=== PATIENT | female | born 1945 | race Caucasian/White ===

== ENCOUNTER 2021-01-08 12:25 | Emergency (ER) | payer MEDICARE, SELFPAY ==
[2021-01-08 13:30] VITALS: BP 185/82; PULSE 72; RESP 16; TEMP 36.7; O2SAT 96; BMI 39.9
--- NOTE | 2021-01-08 13:39 | ED.FEMALEGU ---
HPI - Female Genitourinary General Chief complaint: Urogenital-Female Stated complaint: vag abscess Time Seen by Provider: 01/08/21 13:38 Source: patient and family Mode of arrival: wheelchair Limitations: no limitations History of Present Illness HPI Narrative: 75 y/o female presenting with painful external vaginal lesion for unknown amount of time. She has a history of HSV2 diagnosed 4 years ago. When she was living with one of her daughters in [facility] she was started on Valtrex for possible flare. The daughter who brings her in today states she thinks she has been in pain since then with no resolution after antivirals. Daughter today is a MEDICAL OFFICE REP and states she has never seen a lesion like this before and it is dry, cracked and painful. It started to slightly bleed today. No dysuria, no constipation. No fevers. MD elicited complaint: genital swelling Pertinent past history: STI/STD Onset (ago): month(s) Location of symptoms: external genitalia and perineum Severity: severe Female Urogenital Radiation: Non-Radiating Quality of pain: sharp and aching Consistency: intermittent Vaginal discharge: none Vaginal bleeding: none Exacerbating factors: palpation Associated symptoms: denies other symptoms Treatment prior to arrival: none Sexual activity: No Patient : No Related Data Allergies Allergy/AdvReac Type Severity Reaction Status Date / Time aspirin [ASA] Allergy Unknown BLOODY NOSE Unverified 07/15/20 14:52 Review of Systems Review of Systems: Constitutional: No Fever, No Chills Gastrointestinal: No Nausea, No Vomiting, No Diarrhea, No abdominal Pain Genitourinary: No Dysuria, No Urinary Frequency, No Hematuria Musculoskeletal: No joint pain, No Myalgias Skin: + Skin Lesions, No rash Neuro: No Weakness, No Numbness, No Dizziness, No Headache Psych: No Anxiety/Panic, No Depression Heme/Lymph: No Bruising, No Lymphadenopathy PMFSH Past Medical History Attestation statement: The following information was validated with the patient. Medical History Congestive heart failure (CHF) Dementia Diabetes Hernia Herpes Shoulder fracture, left Social History Social History Smoked in Last 30 Days: No Use of substances other than those prescribed or required for medical reasons: No Advance Directives: No Advance Directives Information Provided: Yes Physical Exam Vital Signs: Vital Signs: Last Vital Signs Temp 98.1 F 01/08/21 13:30 Pulse 72 01/08/21 13:30 Resp 16 01/08/21 13:30 BP 185/82 H 01/08/21 13:30 Pulse Ox 96 01/08/21 13:30 Body Mass Index 39.9 Appearance: Alert. Oriented X2. No acute distress. Eyes: Pupils equal, round and reactive to light. ENT: Pharynx normal. Neck: Normal inspection. Neck supple. CVS: Normal heart rate and rhythm. Pulses normal. Respiratory: No respiratory distress. Breath sounds normal. Abdomen: Obese, Soft and nontender. +BS x4 : large 3cm friable mass at the base of the left vulva, tender Skin: Skin warm and dry. Normal skin color. Normal skin turgor. No rashes. Extremities: No lower extremity edema. Course Course Course Narrative: 75 y/o female presenting with painful external genitalia lesion for unknown amount of time. Lesion is highly concerning for a malignant lesion. The possibility of this was discussed with the patient's daughter. Dr. Jones has been contacted for evaluation of possible biopsy - he is happy to see the patient in the office and will contact them this week to arrange. Patient and daughter agree. Barrier cream provided to family for comfort. Stable for d/c. Critical Care Time Critical Care Time Critical Care Time: No Discharge Plan Discharge Clinical Impression: Vulval lesion Patient Disposition: Home, Self-Care Instructions: Vulva Biopsy (DC) Additional Instructions: It is important that you follow up with Gynecology for further workup of the painful lesion. You will likely need a biopsy to diagnose it. Recommend using barrier cream as a protective layer. Dr. Jones's office will call you to arrange an appointment. Referrals: Sergo Jones MD [Physician] - 2 days (vulvar/perirectal lesion) Discharge Date/Time: 01/08/21 14:27
== END 2021-01-08 14:27 | disposition home or self-care (01) ==
PROVIDERS: Emergency Provider Emergency Medicine; PCP Internal Medicine
DX: N76.4 Abscess of vulva (principal); E11.9 Type 2 diabetes mellitus without complications; I50.9 Heart failure, unspecified; F03.90 Unspecified dementia, unspecified severity, without behavioral disturbance, psychotic disturbance, mood disturbance, and anxiety
CPT/HCPCS: 96374; 99283; 99284

== ENCOUNTER 2021-01-10 11:19 | Outpatient (REF) | payer MEDICARE, SELFPAY | END 2021-01-10 11:20 | disposition home or self-care (01) | LOC: HO.LAB 11:19 | PROVIDERS: PCP Internal Medicine; Visit Provider Obstetrics & Gynecology | DX: D07.1 Carcinoma in situ of vulva (principal) | CPT/HCPCS: 56605; 88305; 99202 ==

== ENCOUNTER → 2021-01-14 11:51 | Outpatient (BNVA) | payer MEDICARE, SELFPAY | PROVIDERS: PCP Internal Medicine; Visit Provider Obstetrics & Gynecology | DX: Z13.89 Encounter for screening for other disorder (principal) | CPT/HCPCS: Q3014 ==